=== PATIENT | male | born 1965 | race Asian ===

== ENCOUNTER 2022-05-19 10:04 | Outpatient (CLI) | payer BC, SELFPAY | END 2022-05-19 10:05 | disposition home or self-care (01) | LOC: LAB 10:06 | PROVIDERS: PCP Family Medicine; Visit Provider Orthopaedic Surgery Sports Medicine | DX: Z01.818 Encounter for other preprocedural examination (principal) | CPT/HCPCS: 36415; 86850; 86900; 86901 ==

== ENCOUNTER 2022-05-21 10:47 | Day surgery (SDC) | payer BC, SELFPAY ==
[2022-05-20 17:30] VITALS: BP 85/59; PULSE 79; RESP 16; TEMP 36.1; O2SAT 94
[2022-05-21] VITALS (19 sets, daily range): BP systolic 88–139; BP diastolic 40–91; PULSE 68–85; RESP 14–18; TEMP 36.1–36.7; O2SAT 92–98; BMI 39.6
[2022-05-21] MEDS: fentaNYL 100 MCG/2 ML inj IVP (10:51)
[2022-05-21] MEDS: LACTATED RINGERS 1000 ML 1,000 ML 100 ML IV (11:00)
[2022-05-21] MEDS: OXYCODONE (CR) 10 MG TAB.ER.12H PO (11:00)
[2022-05-21] MEDS: CELECOXIB 200 MG CAPSULE PO ×2 (11:00→21:12)
[2022-05-21] MEDS: ACETAMINOPHEN 500 MG TABLET 1000 MG PO ×2 (11:00→18:51)
[2022-05-21] MEDS: MIDAZOLAM HCL 1 MG/ML inj IVP (12:04)
--- NOTE | 2022-05-21 12:16 | W.PM.NB ---
Nerve Block Nerve Block Time Seen by Provider: 12:09 Date Seen: 05/21/22 Type of block requested by surgeon for post-operative analgesia: CASSANDRA/LFCN Side: left Time out performed: Yes Verification of patient name: Yes Verification of date of : Yes Site marking: site marked Name of person performing procedure: linda Assistants, if any: Wili Continuous monitoring Was continuous monitoring of O2 sat, B/P, nuclear monitoring technician, recorded every 15 minutes?: Yes Procedure Checklist: sterile prep and needles Ultrasound guided. Images saved: Yes Medications given in 5ml increments after negative aspiration: Ropivicaine %: 0.5 mL: 30 Needle gauge: 22 Decadron (mg): 10 Precedex (mcg): 20 Patient tolerated procedure well: Yes
--- NOTE | 2022-05-21 12:21 | SUR.PREOP ---
TIME?OUT:?1200 PT/RN/MDA?VERIFICATION?OF?SURGICAL?SITE,?PROCEDURE,?AND?CONSENT OBTAINED?PRIOR?TO?INVASIVE?PROCEDURE.
--- NOTE | 2022-05-21 12:52 | CRLHL7_ITS ---
For Patients: As a result of the Cures Act, medical imaging exams and procedure reports are released immediately into your electronic medical record. You may view this report before your referring provider. If you have questions, please contact your health care provider. Indication: Hip replacement surgery Technique: AP hip fluoroscopic image. Fluoroscopy time 58.1 seconds. Findings/Impression: Hardware from a left total hip arthroplasty is in satisfactory position. Dictated by Napoleon Vera MD @ 05/21/2022 3:26:47 PM (Electronically Signed)
--- NOTE | 2022-05-21 15:20 | PM.ORPRC ---
Procedure Note Date of procedure: 05/21/22 Procedure: PREOPERATIVE DIAGNOSIS: 1. Left hip osteoarthritis, severe, primary POSTOPERATIVE DIAGNOSIS: 1. Left hip osteoarthritis, severe, primary PROCEDURE: 1. Left total hip arthroplasty-anterior approach-33% added difficulty for this case due to patient's large body mass. BMI 39.6 once the focused around this pelvis and thighs grooving strong musculature making this a difficult/taxing case. Required longer retractors and more hands to help with retraction. 2. [id number] - intraoperative fluoroscopy up to 1 hour. SURGEON: Indio Gee MD. CLIENT SERVICE EXECUTIVE: Zeeshan Escudero PA-C; Sukhjinder COLBY - Of note, a skilled cashier assistant was critical for this case to aid in patient positioning, tissue retraction, limb manipulation/positioning, dislocation/relocation, patient safety, and closure. ANESTHESIA: General endotracheal anesthetic EBL: 1,300 ml IMPLANTS: DePuy J&J uncemented total hip [place] cup size 58, hole eliminator, +4 neutral liner Actis stem, high offset, size 8 +8.5 mm ceramic 36 mm head. COMPLICATIONS: None evident INDICATIONS: The patient is a pleasant 56-year-old male who has experienced severe left hip pain and difficulty bearing weight. Workup included x-rays which revealed severe osteoarthrosis in the hip. Given the deformity, the dysfunction, and the pain, as well as the failure of nonoperative management, recommendation was made for surgery. FINDINGS: Full-thickness chondral loss throughout the femoral head broadly. Also substantial osteophytes around the femoral head/neck junction and perimeter of the acetabulum. Large effusion upon entering the joint. DESCRIPTION OF PROCEDURE: Following a thorough discussion of risks, benefits, and alternatives consent was obtained and the left hip was marked. The patient was brought to the operating room and placed supine on the operating table. Induction of anesthesia was undertaken. 3 g IV Ancef and 1 g tranexamic acid was administered within 1 hr of incision preoperatively. Proper time-out was performed identifying proper patient, site, procedure. The operative extremity was prepped and draped in the appropriate sterile fashion using ChloraPrep after the patient was positioned on the [place] table with head in neutral alignment and all bony prominences well padded. C-arm fluoroscopic imaging was utilized to confirm proper pelvis rotation and position, and to get true AP films of both the contralateral left, and the affected left hip. This is for comparison. A longitudinal incision was made starting approximately 1 cm distal to the ASIS, and 3-4 cm lateral. The incision was extended distally aiming toward the lateral border the patella. Sharp incision through skin and bovie cautery through the subcutaneous tissue allowed identification of the TFL fascia. This was sharply divided, and the fascia bluntly released from the muscle fibers as we dissected medial. Upon coming to the medial border, we were able to retract the TFL laterally, and penetrated the deeper fascia and identify the crossing circumflex vessels. These were ligated/cauterized. The rectus was elevated from the capsule, and retractors placed laterally and medially along the femoral neck to help with visualization of the capsule. We then performed an inverted T capsulotomy. The capsule was tagged for later repair. Retractors were placed inside the capsule. The femoral neck was visualized after releasing medially down to the lesser trochanter, along the saddle laterally, and up onto the acetabulum. The femoral neck cut was made in line with our preoperative templating. The head was removed in a single piece, and sized. We turned our attention to acetabular preparation. Initially, the labrum was resected from around the perimeter, the pulvinar was excised, allowing us to visualize the false wall. We started the reaming with a 43 mm reamer. This was medialized down to the true wall. We then enlarged our reamers sequentially up to one size less than the selected cup size. We trialed at the same size and found it to have an excellent fit. The selected cup was then opened, inserted, and impacted in line with the goal of 40-45? of abduction, and 20-25? of anteversion. This was confirmed on C-arm fluoroscopic imaging to be in the appropriate/goal position. Once the cup was placed we placed a hole eliminator and a liner consistent with preop planning. Attention was turned to the femoral preparation. The limb was extended, externally rotated, and adducted. The posteromedial capsule was released, as retractors were placed allowing challenging access to the proximal femur. It was here where extra long retractors were necessary and more hands were required to help with retraction to help achieve a safe femoral preparation. Initially a cook box filler was followed by canal finder followed by various broaches. We broached sequentially up to size noted above, found it to have excellent rotational control, and trialing various heads and necks, revealed that appropriate neck offset, and the above noted head size provided the greatest stability, and anglican of length, and offset. C-arm fluoroscopic imaging confirmed position of the stem, as well as leg lengths, which were compared with the pre procedure all fluoroscopic images. Trial implants were removed, the real femoral stem inserted, as was the ceramic head. After reducing, the leg was placed through range of motion and stability was confirmed anterior, posterior, and lateral. A 3 min Betadine soak was then performed, and thorough irrigation with normal saline followed. Closure of the capsule was performed with #1 PDS. Bleeding was confirmed to be controlled at this stage, and the TFL fascia was closed with #0 strata fix. Subcutaneous, and subcuticular closure was performed with 2-0 Vicryl and 4-0 Monocryl, respectively. Dressings were applied, and the patient was awoken from anesthesia and transferred the PACU in stable condition. A skilled cashier assistant was critical for this case to aid in patient positioning, tissue retraction, proximal femur exposure, limb manipulation/positioning, dislocation/relocation, patient safety, and closure. Again, 33% added difficulty for this case due to patient's large body mass. BMI 39.6 once the focused around this pelvis and thighs grooving strong musculature making this a difficult/taxing case. Required longer retractors and more hands to help with retraction. PLAN: 1. Weight bear as tolerated operative extremity. 2. 23 hr perioperative antibiotics. 3. Ice. 4. PT/OT consults for ambulation assistance/mobility education. 5. Social work consult for discharge planning. 6. DVT prophylaxis with at SCDs, Paul Alvarez, and Xarelto x5 days followed by aspirin for a total of 1 month..
--- NOTE | 2022-05-21 16:00 | CRLHL7_ITS ---
For Patients: As a result of the Cures Act, medical imaging exams and procedure reports are released immediately into your electronic medical record. You may view this report before your referring provider. If you have questions, please contact your health care provider. Indication: POST OP HIP XRAY VIVIANE Technique: AP hip centered pelvis and lateral view left hip Findings/Impression: Hardware from a left total hip arthroplasty is in satisfactory position. Bone alignment is normal. No sign of acute fracture. Postop changes are within normal limits. Chronic deformity of the anterior left femoral cortex noted without pathologic fracture. Dictated by Napoleon Vera MD @ 05/22/2022 10:10:01 AM (Electronically Signed)
--- NOTE | 2022-05-21 16:59 | W.ANESCHARGE ---
Anesthesia Charges Start Date/Time Anesthesia Start Date: 05/21/22 Anesthesia Start Time: 12:37 Stop Date/Time Anesthesia Stop Date: 05/21/22 Anesthesia Stop Time: 16:42 Summary Emergency: No
--- NOTE | 2022-05-21 17:04 | P.NB_ITS ---
Nerve Block Nerve Block Time Seen by Provider: 12:20 Date Seen: 05/21/22 Type of block requested by surgeon for post-operative analgesia: CASSANDRA/LFCN Side: left Time out performed: Yes Verification of patient name: Yes Verification of date of : Yes Site marking: site marked Name of person performing procedure: Sasha Assistants, if any: Wili Continuous monitoring Was continuous monitoring of O2 sat, B/P, monitor and storage bin tender, recorded every 15 minutes?: Yes Procedure Checklist: sterile prep, needles and gloves Ultrasound guided. Images saved: Yes Medications given in 5ml increments after negative aspiration: Ropivicaine %: 0.5 mL: 30 Needle gauge: 22 Decadron (mg): 10 Precedex (mcg): 20 Patient tolerated procedure well: Yes
--- NOTE | 2022-05-21 18:06 | P.IMCN_ITS ---
Date of Consult Patient: [facility] Patient Consult date: 05/21/22 Requesting Physician: Orthopedics Primary Care Provider: Joes Baldwin MD Consult Narrative Reason for consult: Postop support of hypertension, atrial fib, obstructive sleep apnea Narrative: Adonis Chris is a 56 year old man with severe, symptomatic primary left coxarthrosis, who presents for an elective left total hip arthroplasty today per Dr. Indio Gee, orthopedic surgery. Preoperatively he took his usual dose of morning amlodipine 5 mg, morning flecainide dose of 100 mg, morning dose of losartan 100 mg, and morning dose of metoprolol succinate extended release 50 mg. Surgery took longer than normal for various reasons, not the least of which was his obese body habitus requiring additional measures for access and intervention. During the course of the procedure his blood pressures tended to be somewhat low. Patient received a total of 3 doses of phenylephrine 100 mcg, and 3300 mL of lactated Ringer's to maintain his blood pressures. Systolic blood pressures dropped into the 80s. In the postanesthesia care unit they recorded as blood pressure has been 112/63, heart rate 70. Room air oxygen saturations were 97% with respirations of 16. Visit with the patient at this time he indicates that he feels well save some gnawing discomfort in his hip. He is satisfied with the level of pain control at this time. Last dose of hydromorphone was 0.5 mg at 3:50 p.m.. Denies chest heaviness, pressure, tightness, or pain. Denies lightheadedness or dizziness. Denies palpitations. Denies shortness of breath. Denies nausea or vomiting. Review of Systems Status of ROS: Reports: 10 or more systems reviewed and unremarkable except as noted in History and below Narrative: I reviewed the preoperative assessment per Dr. Harden. I obtained the report of the echocardiogram that he had done on 05/18/2022 at the [facility]. Ejection fraction currently 50% compared to 35% on 06/22/2016. Otherwise no other changes per se. No recent febrile illness, no COVID. Denies fevers, rigors, diaphoresis. Denies any change in weight. No recent trauma or injury. No recent travel. No recent blood loss. Utilizes his CPAP every night. Works hard. No limiting symptoms except for his left hip pain. No concerns with gastrointestinal or genitourinary tract function. No focal motor neurologic deficits. No other joint swelling or pain. [facility] Medical History Atrial fibrillation History of cardioversion History of herpes zoster Sleep apnea Surgical History History of rotator cuff surgery (~03/03/13) History of third molar tooth extraction Status post catheter ablation of atrial fibrillation Family History Father Diabetes Heart disease High blood pressure Mother Cancer Social History Narrative: does not drink alcohol does not use illicit drugs has 5 children non-smoker Smoking Status: Never smoker How often do you have a drink containing alcohol: never AUDIT-C Alcohol total score: 0 Non-prescribed substance use: denies use Caffeine: Yes (coffee, 1 cup/day occ.) Meds Home Medications and Allergies Home Medications Medication Instructions Recorded Confirmed Type amlodipine 5 mg tablet 5 mg PO DAILY tab 05/17/22 05/21/22 History flecainide 100 mg tablet 100 mg PO BID tab 05/17/22 05/21/22 History losartan 100 mg tablet 100 mg PO DAILY tab 05/17/22 05/21/22 History metoprolol succinate 50 mg 50 mg PO BID 05/17/22 05/21/22 History tablet,extended release 24 hr multivitamin with iron 1 tab PO QDAY 05/17/22 05/21/22 History multivitamin,tx-minerals 1 tab PO QDAY 05/17/22 05/21/22 History Home Medication Comments: Took his morning dose of amlodipine, flecainide, losartan, and metoprolol prior to coming into the hospital for surgery today. Allergies Allergy/AdvReac Type Severity Reaction Status Date / Time lisinopril AdvReac Mild Cough Verified 05/21/22 10:54 Exam Narrative: Exam Narrative: Awake. Alert. Oriented to self, place, time, situation. Pleasant. Conversant. Articulate. Cooperative. Friendly. Mood and affect are congruent. Full neck. Midline trachea. Tight oral aperture. Dentition in good repair. Lungs clear to auscultation. No wheezing, rhonchi, or rales. Chest wall excursions are full. Heart tones are distant but with regular rhythm, normal S1-S2, no murmur, gallop, or rub. PMI is not laterally displaced. Abdomen obese, active bowel sounds, soft, nontender. Extremities without edema. No focal motor neurologic deficits. Const: Vital Signs, click to edit/add: Vital Signs - 24 hr 05/21/22 11:24 05/21/22 12:05 05/21/22 12:10 Temperature 98.0 F Pulse Rate 80 77 76 Respiratory Rate 16 16 16 Blood Pressure 139/91 H 132/84 134/84 Pulse Oximetry 96 94 94 05/21/22 12:15 05/21/22 12:20 05/21/22 16:42 Temperature 97.8 F Pulse Rate 75 78 70 Respiratory Rate 16 16 16 Blood Pressure 136/40 L 132/82 112/63 Pulse Oximetry 94 95 98 05/21/22 16:47 05/21/22 16:52 05/21/22 16:57 Temperature Pulse Rate 68 72 74 Respiratory Rate 16 16 16 Blood Pressure 104/80 88/55 L 118/71 Pulse Oximetry 97 98 97 05/21/22 17:02 05/21/22 17:07 05/21/22 17:13 Temperature 97.5 F L Pulse Rate 72 75 75 Respiratory Rate 16 16 16 Blood Pressure 118/81 114/74 109/70 Pulse Oximetry 98 95 95 Assessment and Plan Assessment and plan (1) Primary osteoarthritis of left hip: Status: Acute (2) S/P total left hip arthroplasty: Status: Acute (3) Postoperative hypotension: Status: Acute Assessment and Plan: Multifactorial, including from his antihypertensive medications which he took this morning plus general anesthesia plus surgery. Hold his antihypertensive medicines at this juncture, including amlodipine, losartan, metoprolol succinate. Intermittent boluses of crystalloid IV fluids. (4) Obesity: Status: Acute Assessment and Plan: Uses his CPAP nightly at home. Consider outpatient discussion about additional measures to address obesity. (5) Atrial fibrillation: Problem comment: Takes flecainide. In normal sinus rhythm. Status: Acute Assessment and Plan: Hold flecainide for now. Hold metoprolol succinate for now. (6) Cardiomyopathy: Problem comment: 06/22/2016- EF 35%; 05/18/2022- EF 50%, with heart rate well controlled. [facility]. Status: Acute (7) Hypertension: Status: Acute Assessment and Plan: Antihypertension medications on hold due to postoperative hypotension. (8) Sleep apnea with use of continuous positive airway pressure (CPAP): Status: Acute Assessment and Plan: Uses his CPAP nightly at home. Plan 1. Will follow with Orthopedic surgery while patient is in hospital. 2. Agree with postoperative venous thromboembolism prophylaxis. 3. Agree with perioperative antibiotic prophylaxis. 4. Reviewed my impressions and plans with the patient and his , Tabatha. They are agreeable to above stated plans and recommendations.
[2022-05-21] MEDS: 0.9 % SODIUM CHLORIDE 500 ML IV (18:21)
[2022-05-21] MEDS: LACTATED RINGERS 1000 ML 1,000 ML 75 ML IV ×2 (18:43→18:50)
[2022-05-21] MEDS: CEFAZOLIN 3 GM in 0.9 % SODIUM CHLORIDE Mini-bag 100 ML IVPB (18:58)
[2022-05-21 19:24] LABS: Basophils Percent Auto 0.1 % (0.0-3.0); Hematocrit 37.8 % (37.0-53.0); Hemoglobin* 12.9 gm/dL (13.5-17.5); Immature Granulocytes Abs Auto 0.02 K/uL (0.00-0.30); Mean Corpuscular HGB Conc 34 gm/dL (32-36); Mean Corpuscular Hemoglobin 30 pg (26-34); Mean Corpuscular Volume 87 fL (80-100); Monocytes Percent Auto 2.6 % (0.0-11.0); Neutrophils Percent Auto 90.2 % (42.0-72.0); Platelet Count* 248 K/uL (140-440); RDW Coefficient of Variation % 12.2 % (11.5-15.5); Red Blood Count 4.33 m/uL (4.30-5.90)
[2022-05-21 19:26] LABS: Slide Review Reflex No
--- NOTE | 2022-05-21 19:48 | PC.NURSE ---
End of shift-- Very pleasant and cooperative, alert and oriented but drowsy patient arrived from PACU at approximately 1725. Pt has been hypotensive with B/P from 85-102/50s-60s and MD was notified. Pt lied flat and given 500ml NS bolus per MD order with temporary improvement. Other VS WNL. Pt is afebrile. SPO2 maintained >90% while awake, though occasionally noted to drop as low as 88% while pt is sleeping. Patient rated pain 2-3 out of 10 in left hip and stated that it was mild and tolerable at this time. Dressing to left hip is C/D/I and CMS WNL. Ice pack in place. LS CTA. BS+ x4 and pt denied nausea. No flatus as of yet, but pt is tolerating food and fluids without difficulty. is at bedside and appears loving and supportive. Pt has not been out of bed or urinated yet post-operatively. Report to Dean, Jacqueline.
[2022-05-21] MEDS: SENNOSIDES 1 TAB TABLET 2 TAB PO (21:11)
[2022-05-21] MEDS: 0.9 % SODIUM CHLORIDE 1000 ml 1,000 ML 500 ML IV (23:42)
[2022-05-22 03:00] VITALS: BP 109/65; PULSE 81; RESP 18; TEMP 36.3; O2SAT 96
[2022-05-22] MEDS: CEFAZOLIN 3 GM in 0.9 % SODIUM CHLORIDE Mini-bag 100 ML IVPB ×2 (04:44→10:31)
[2022-05-22] MEDS: LACTATED RINGERS 1000 ML 1,000 ML 75 ML IV (04:45)
--- NOTE | 2022-05-22 05:48 | PC.NURSE ---
Post surgical day 1. Patient is alert and orientedx4. Low BP's overnight but stable after 1L of fluids bolus. On room air and satting fine. CPAP on overnight. rating pain at 2/10.IV fluids and abx administered as ordered. Voided in the bathroom once during the shift. Ambulated to the bathroom x1. No further concerns noted
[2022-05-22 06:31] LABS: Basophils Percent Auto 0.1 % (0.0-3.0); Hematocrit 30.8 % (37.0-53.0); Hemoglobin* 10.6 gm/dL (13.5-17.5); Immature Granulocytes Abs Auto 0.04 K/uL (0.00-0.30); Lymphocytes Percent Auto 7.8 % (20-44); Mean Corpuscular HGB Conc 34 gm/dL (32-36); Mean Corpuscular Hemoglobin 30 pg (26-34); Mean Corpuscular Volume 87 fL (80-100); Neutrophils Percent Auto 83.8 % (42.0-72.0); Platelet Count* 228 K/uL (140-440); RDW Coefficient of Variation % 12.4 % (11.5-15.5); Red Blood Count 3.54 m/uL (4.30-5.90); White Blood Count* 13.79 K/uL (4.50-11.00)
[2022-05-22] MEDS: ACETAMINOPHEN 500 MG TABLET 1000 MG PO (06:31)
[2022-05-22 06:40] LABS: Chloride* 107 mmol/L (96-114); Sodium* 135 mmol/L (135-149)
[2022-05-22 06:41] LABS: Potassium* 4.4 mmol/L (3.6-5.1)
[2022-05-22 06:42] LABS: Slide Review Reflex No
[2022-05-22 06:43] LABS: Creatinine* 1.4 mg/dL (0.5-1.5); Estimated Glomerular Filt Rate 59 ml/min
[2022-05-22 06:44] LABS: Blood Urea Nitrogen* 29 mg/dL (7-30); Calcium* 7.5 mg/dL (8.4-10.6); Carbon Dioxide* 23 mmol/L (20-32); Glucose* 132 mg/dL (60-115)
[2022-05-22 07:00] VITALS: BP 120/62; PULSE 81; RESP 18; TEMP 36.9; O2SAT 96
[2022-05-22] MEDS: RIVAROXABAN 10 MG TABLET PO (09:11)
[2022-05-22] MEDS: CELECOXIB 200 MG CAPSULE PO (09:11)
[2022-05-22] MEDS: SENNOSIDES 1 TAB TABLET 2 TAB PO (09:11)
--- NOTE | 2022-05-22 11:37 | PC.NURSE ---
pt d/c to home via w/c accompanied by and son. d/c packet reviewed and signed, all questions answered. pts pain 01/11, no
--- NOTE | 2022-05-22 11:38 | NUTR.NU ---
pt d/c to home via w/c accompanied by and son. discharge packet reviewed and signed. tolerating reg diet. BP WNL. tolerating ambulation with walker. pain 1-01/11. IV removed, cath intact.
--- NOTE | 2022-05-22 12:21 | P.ORPN_ITS ---
Subjective Subjective Date Seen: 05/22/22 Principal diagnosis: Status postop day 1, left total hip arthroplasty - anterior approach Interval history: Patient reports doing well. No acute events over night. Some lower blood pressures postoperative as well as intraoperative. Pain managed with scheduled /PRN medications and ice. DVT prophylaxis rivaroxaban, bilateral knee high Paul stockings, and SCDs. fevers, chills, aches, N/V, CP, SOB/RHOADES, tachycardia, or lightheadedness Ortho Exam Narrative Exam Narrative: -Patient appears comfortable in recliner eating breakfast; no apparent acute distress -Alert and oriented times 3 -Operative hip swollen; firm tissues which is comparable to contralateral side; no obvious erythema. No ecchymosis. Warmth appropriate -Surgical dressing clean, dry, intact; no obvious drainage, no erythematous streaking peripheral to the bandage -Bilateral calves soft and supple; no significant swelling, edema, tenderness, erythema, discoloration, warmth, or palpable cords -2+ DP/PT pulses, intact dermatomes and myotomes distally (5/5 strength). No numbness about the lateral femoral cutaneous nerve distribution. Const Vital Signs, click to edit/add: Vital Signs - 24 hr 05/21/22 16:42 05/21/22 16:47 05/21/22 16:52 Temperature 97.8 F Pulse Rate 70 68 72 Pulse Rate [Left Radial] Respiratory Rate 16 16 16 Blood Pressure 112/63 104/80 88/55 L Blood Pressure [Right Arm] Pulse Oximetry 98 97 98 05/21/22 16:57 05/21/22 17:02 05/21/22 17:07 Temperature 97.5 F L Pulse Rate 74 72 75 Pulse Rate [Left Radial] Respiratory Rate 16 16 16 Blood Pressure 118/71 118/81 114/74 Blood Pressure [Right Arm] Pulse Oximetry 97 98 95 05/21/22 17:13 05/21/22 17:25 05/21/22 17:35 Temperature 97.0 F L 97.5 F L Pulse Rate 75 77 Pulse Rate [Left Radial] 77 77 Respiratory Rate 16 16 16 Blood Pressure 109/70 Blood Pressure [Right Arm] 91/56 L 98/49 L Pulse Oximetry 95 92 95 05/21/22 17:45 05/21/22 18:00 05/21/22 18:15 Temperature 97.5 F L 97.5 F L 97.5 F L Pulse Rate Pulse Rate [Left Radial] 78 78 83 Respiratory Rate 16 14 14 Blood Pressure Blood Pressure [Right Arm] 88/55 L 96/63 102/64 Pulse Oximetry 93 94 92 05/21/22 18:45 05/21/22 23:00 05/22/22 03:00 Temperature 97.5 F L 97.8 F 97.4 F L Pulse Rate Pulse Rate [Left Radial] 85 85 81 Respiratory Rate 14 18 18 Blood Pressure Blood Pressure [Right Arm] 89/62 L 101/62 109/65 Pulse Oximetry 96 97 96 05/22/22 07:00 Temperature 98.4 F Pulse Rate Pulse Rate [Left Radial] 81 Respiratory Rate 18 Blood Pressure Blood Pressure [Right Arm] 120/62 Pulse Oximetry 96 Documenting provider has reviewed patient's vital signs: yes Assessment and Plan Assessment and plan (1) Primary osteoarthritis of left hip: Status: Acute (2) S/P total left hip arthroplasty: Problem details: Pod 1 left total hip arthroplasty - anterior approach Status: Acute (3) Postoperative hypotension: Status: Acute (4) Obesity: Status: Acute (5) Atrial fibrillation: Problem details: Takes flecainide. In normal sinus rhythm. Status: Acute (6) Cardiomyopathy: Problem details: 06/22/2016- EF 35%; 05/18/2022- EF 50%, with heart rate well controlled. Following at [facility] cardiology. Status: Acute (7) Hypertension: Status: Acute (8) Sleep apnea with use of continuous positive airway pressure (CPAP): Status: Acute (9) Acute postoperative anemia due to expected blood loss: Problem details: Acute blood loss anemia, surgically related, hemoglobin 10.9-asymptomatic Status: Acute Plan - Complete 23 hour perioperative antibiotics. - PT/OT consult for education and assistance. - Social work consult for discharge planning - Prescribed analgesics as needed - DVT prophylaxis: Rivaroxaban, then transition to aspirin b.i.d.; bilateral knee high Paul Hose stockings and SCDs - Anticipation is for discharge to home with spouse if the patient remains medically stable, pain is controlled, and they are safe with mobilization. - Patient will have outpatient hemoglobin lab draw in [facility] later this week trend this blood loss anemia. I am not concerned with his ability to replenish RBCs and thus hemoglobin
--- NOTE | 2022-05-22 12:26 | P.DS_ITS ---
DS: Providers Provider Date Seen: 05/22/22 Primary care physician: Jose Baldwin MD Consults: 05/21/22 17:52 Consult to Occupational Therapy [CONS] Routine Comment: Reason(s) for OT Consult:: ADLs Prior to Discharge Any Restrictions?:: No Restrictions Comment: Consult to Occupational Therapy [CONS] Routine Comment: Reason(s) for OT Consult:: Evaluate and Treat Any Restrictions?:: No Restrictions Consult to Physical Therapy [CONS] Routine Comment: Ambulate in the flowers today Reason(s) for PT Consult:: Evaluate and Treat Any Restrictions?:: No Restrictions Comment: Nursing Activity Consult to Physical Therapy [CONS] Routine Comment: Ambulate in the flowers today Reason(s) for PT Consult:: THR TX Protocol POD#0 Any Restrictions?:: Wt Bearing as Tolerated Comment: Nursing Activity: See nursing activity order Consult to Physician [CONS] Routine Comment: Consulting Provider: Hospitalists Has provider been notified: No Consult to Sr Risk Management Consultant [CONS] Routine Comment: Reason for Consult:: Discharge Planning Needs Consult to Sr Risk Management Consultant [CONS] Routine Comment: Reason for Consult:: Discharge Planning Needs Attending Physician on discharge: Indio Gee MD DS: Diagnosis Discharge Diagnosis (1) Primary osteoarthritis of left hip: Status: Acute (2) S/P total left hip arthroplasty: Status: Acute Problem details: Pod 1 left total hip arthroplasty - anterior approach (3) Postoperative hypotension: Status: Acute (4) Obesity: Status: Acute (5) Atrial fibrillation: Status: Acute Problem details: Takes flecainide. In normal sinus rhythm. (6) Cardiomyopathy: Status: Acute Problem details: 06/22/2016- EF 35%; 05/18/2022- EF 50%, with heart rate well controlled. Following at [facility] cardiology. (7) Hypertension: Status: Acute (8) Sleep apnea with use of continuous positive airway pressure (CPAP): Status: Acute (9) Acute postoperative anemia due to expected blood loss: Status: Acute Problem details: Acute blood loss anemia, surgically related, hemoglobin 10.9-asymptomatic DS: Summary Hospital Course Hospital Course: The patient has a history of left hip osteoarthritis, primary, severe. After appropriate preoperative evaluation, the patient underwent left total hip arthroplasty. Postoperatively given anticoagulation for deep vein thrombosis prophylaxis. They progressed to PT/OT and were felt ready and prepared for discharged to home with appropriate pain medication and anticoagulation medications. Status at Discharge Functional status at discharge: uses cane/walker Overall status at discharge: patient is progressing back to baseline Time Spent with Patient Time attestation: Total time spent providing and/or coordinating discharge services: Time spent: Greater than 30 minutes Specific discharge activities: Will need to obtain hemoglobin lab draw [facility] later this week to trend his hemoglobin following surgically induced blood loss anemia. Exam Const: Vital Signs, click to edit/add: Vital Signs - 24 hr 05/21/22 16:42 05/21/22 16:47 05/21/22 16:52 Temperature 97.8 F Pulse Rate 70 68 72 Pulse Rate [Left R adial] Respiratory Rate 16 16 16 Blood Pressure 112/63 104/80 88/55 L Blood Pressure [Ri ght Arm] Pulse Oximetry 98 97 98 05/21/22 16:57 05/21/22 17:02 05/21/22 17:07 Temperature 97.5 F L Pulse Rate 74 72 75 Pulse Rate [Left R adial] Respiratory Rate 16 16 16 Blood Pressure 118/71 118/81 114/74 Blood Pressure [Ri ght Arm] Pulse Oximetry 97 98 95 05/21/22 17:13 05/21/22 17:25 05/21/22 17:35 Temperature 97.0 F L 97.5 F L Pulse Rate 75 77 Pulse Rate [Left R adial] 77 77 Respiratory Rate 16 16 16 Blood Pressure 109/70 Blood Pressure [Ri ght Arm] 91/56 L 98/49 L Pulse Oximetry 95 92 95 05/21/22 17:45 05/21/22 18:00 05/21/22 18:15 Temperature 97.5 F L 97.5 F L 97.5 F L Pulse Rate Pulse Rate [Left R adial] 78 78 83 Respiratory Rate 16 14 14 Blood Pressure Blood Pressure [Ri ght Arm] 88/55 L 96/63 102/64 Pulse Oximetry 93 94 92 05/21/22 18:45 05/21/22 23:00 05/22/22 03:00 Temperature 97.5 F L 97.8 F 97.4 F L Pulse Rate Pulse Rate [Left R adial] 85 85 81 Respiratory Rate 14 18 18 Blood Pressure Blood Pressure [Ri ght Arm] 89/62 L 101/62 109/65 Pulse Oximetry 96 97 96 05/22/22 07:00 Temperature 98.4 F Pulse Rate Pulse Rate [Left R adial] 81 Respiratory Rate 18 Blood Pressure Blood Pressure [Ri ght Arm] 120/62 Pulse Oximetry 96 DS: Data Data Completed and Pending Labs on day of discharge: Labs from last 24 hours 05/22/22 05/22/22 05/21/22 06:10 06:10 19:20 WBC 13.79 H 14.10 H RBC 3.54 L 4.33 Hgb 10.6 L 12.9 L Hct 30.8 L 37.8 MCV 87 87 MCH 30 30 MCHC 34 34 RDW Coeff of Rosa 12.4 12.2 Plt Count 228 248 Neut % (Auto) 83.8 H 90.2 H Lymph % (Auto) 7.8 L 7.0 L [place] % (Auto) 8.0 2.6 Eos % (Auto) 0.0 0.0 Baso % (Auto) 0.1 0.1 Neut # (Auto) 11.60 H 12.70 H Lymph # (Auto) 1.10 1.00 [place] # (Auto) 1.10 H 0.40 Eos # (Auto) 0.00 0.00 Baso # (Auto) 0.00 0.00 Abs Immat Gran (auto) 0.04 0.02 Sodium 135 Potassium 4.4 Chloride 107 Carbon Dioxide 23 BUN 29 Creatinine 1.4 Estimated Creat Clear 63.90 Estimated GFR 59 Glucose 132 H Calcium 7.5 L Discharge Plan Discharge Disposition: Home, Self-Care Discharging Surgeon: Zeeshan Escudero Follow-Up Appointment: SaturdayMay 29 at 9:20 AM Prescriptions: New oxycodone 5 mg tablet 2.5 - 5 mg PO Q4-6H MDD 6 PRN (Reason: pain) Qty: 42 0RF Rx Instructions: Take as needed for postop pain: 2.5mg mild pain, 5mg moderate-severe pain. sennosides-docusate sodium [Senna-S] 8.6-50 mg tablet 1 - 4 tab-cap PO BID Qty: 60 0RF Rx Instructions: Hold medication if experiencing loose stools. rivaroxaban 10 mg tablet 10 mg PO DAILY Qty: 4 0RF Rx Instructions: Medication for deep vein clot prevention post surgery. Complete this medication before starting Aspirin. aspirin 81 mg tablet,delayed release (DR/EC) 81 mg PO BID Qty: 50 0RF Rx Instructions: For deep vein clot prevention post surgery. Start this medication after completing Rivaroxaban. Take twice daily. acetaminophen 500 mg capsule 500 - 1,000 mg PO Q6H MDD 4000mg PRNQty: 100 0RF No Action multivitamin,tx-minerals Tablet 1 tab PO QDAY 0RF multivitamin with iron Tablet 1 tab PO QDAY 0RF amlodipine 5 mg tablet 5 mg PO DAILY 0RF flecainide 100 mg tablet 100 mg PO BID 0RF metoprolol succinate 50 mg tablet extended release 24 hr 50 mg PO BID 0RF losartan 100 mg tablet 100 mg PO DAILY 0RF Activity Level: Activity as Tolerated, Weight Bearing as Tolerated, Use Cane and Use Walker Activity Detail: Wound: ?Do not remove original dressing; we will remove this at first postop visit in 1 week. Only remove dressing if integrity is in question. ?No immersing wound in water; showering okay; light scrub with your hand and body soap, rinse, dab dry ?Sutures are under the skin, will dissolve; allow surgical glue to come off naturally; do not scrub the wound or apply ointments/lotions ?Call our office with any redness that streaks, excessive drainage from the wound, or wound gapping. Ice/Elevate: ?Ice as needed for swelling and discomfort (cryocuff or ice pack); elevate frequently above the heart MOSHE socks: ?Wear for 1 month, remove for 1 hour 3 times per day ?These are frustrating to take on/off, but are important for blood clot prevention for 1 month after surgery Blood Clot Prevention (DVT): ?Medication: Rivaroxaban followed by aspirin for 25 days Driving: ?Do not drive while taking narcotic pain medication ?Anticipate 4-6 weeks no driving if operative leg is driving leg Dental: ?No elective dental work for 6 months post-op. If there is an urgent/emergent dental need, contact our office for an antibiotic prescription. Smoking/Alcohol: ?Do not smoke; do no drink alcohol especially when taking postoperative oral narcotic medication Seek Care from you Primary Care Provider if you experience the following issues in the postoperative phase and beyond: ?Bacterial infections such as: pneumonia, bacterial skin infection (cellulitis), UTI, high fever, chills unrelated to the operative body part - call your primary care physician urgently for treatment in hopes to protect your health and the metal implant. Referrals: ?PT, OT per patient preference - evaluate/treat total left total hip arthroplasty protocol (the training, ROM, ADLs, knee-high Moshe socks) Follow up: ?Ortho surgeon follow-up in 6 weeks; repeat radiographs AP pelvis, cross-table lateral left hip ?PA-C visit in 1 week *If there are any acute concerns regarding your surgery, please call our orthopedic clinic ([phone]) Discharge Diet: Regular Patient Instructions: Acetaminophen (By mouth), Aspirin (By mouth), Oxycodone, Rapid Release (By mouth), Rivaroxaban (By mouth), Senna (By mouth), Surgical Site Infections (DC), Anterior Hip Replacement (DC) Forms: Work/Release Restrictions Follow-up: Indio Gee MD [Staff Physician] - 05/24/22 1:00 pm (Hemoglobin lab draw at the [facility]. Lab result to Zeeshan PATE) Jose Baldwin MD [Primary Care Provider] - Discharge Orders: Discharge Order (Routine); Ordered 05/22/22 Ordered By: Zeeshan Escudero
== END 2022-05-22 11:25 | disposition home or self-care (01) ==
LOC: OR 10:48 → MEDSURG 16:47
PROVIDERS: PCP Family Medicine; Visit Provider Orthopaedic Surgery Sports Medicine
PROC: (CPT 27130; principal; 2022-05-21 13:15)
DX: M16.12 Unilateral primary osteoarthritis, left hip (principal); Z68.39 Body mass index [BMI] 39.0-39.9, adult; I95.81 Postprocedural hypotension; D62 Acute posthemorrhagic anemia; I48.91 Unspecified atrial fibrillation; G47.33 Obstructive sleep apnea (adult) (pediatric); E66.9 Obesity, unspecified; I11.9 Hypertensive heart disease without heart failure; I43 Cardiomyopathy in diseases classified elsewhere
CPT/HCPCS: 27130; 01214; 36415; 64450; 73501; 76942; 80048; 85025; 97110; 97116; 97161; 97165; A9270; C1776; J0330; J0690; J1100; J1170; J2250; J2370; J2405; J2704; J2710; J2795; J3010; J7030; J7120

== ENCOUNTER 2022-06-01 12:21 | Outpatient (REF) | payer BC, SELFPAY ==
[2022-06-01 12:44] LABS: Bilirubin Direct* 0.4 mg/dL (0.0-0.5); Bilirubin Total* 1.4 mg/dL (0.1-1.5)
== END 2022-06-01 12:22 | disposition home or self-care (01) ==
LOC: NPINS 12:21
PROVIDERS: Internal Medicine Interventional Cardiology; PCP Family Medicine
DX: R17 Unspecified jaundice (principal); I48.91 Unspecified atrial fibrillation; E66.9 Obesity, unspecified; I10 Essential (primary) hypertension; G47.30 Sleep apnea, unspecified; I42.9 Cardiomyopathy, unspecified
CPT/HCPCS: 82247; 82248

== ENCOUNTER 2022-07-11 08:15 | Outpatient (RCR) | payer BC, SELFPAY ==
--- NOTE | 2022-05-15 15:27 | PT.OPE ---
PT [facility] Eval PT [facility] Outpatient Eval Start: 05/15/22 12:49 Freq: Status: Active Protocol: Document 05/15/22 15:22 CJT (Rec: 05/15/22 15:27 CJT [id number]) E-Signed By Fam West PT Physical Therapy Outpatient Evaluation Insurance Information Recert Due Date 08/13/22 Insurance Name [employer] Medical Diagnosis Z96.642 - L hip replacement Treating Diagnosis Z96.642 - L hip replacement Referring Indio Swanson MD Subjective Subjective Pt presents for pre-op appointment for L VIVIANE to be performed on 05/21/[address] Roosevelt Nava. Pt lives with his in a 2-story house with 6 steps to enter. Handrail is located on both sides. Pts bedroom/bathroom is down in the basement and prefers to hang out in this area of his home. 10-12 steps down to basement with handrail on R. Walk-in shower in the bathroom with no grab bars. Pt also lives with his two sons who are 18, and 20 and will be able to assist him if needed. Pts Tabatha works from home and will also be available to assist Adonis if needed. Pt has PMH of a-fib and currently takes medication for management. Pain Comments Date of Last Physician Visit 05/03/22 Date of Next Physician Visit 05/29/22 Date of Surgery (If applicable) 05/21/22 Current Work Status Unemployed Precautions Weight Bearing Status Weight Bear as Tolerated Therapy Limitations/Systems Review Not Limited Objective Range of Motion L Hip ROM Flexion - 90 Abduction - 25 IR/ER - 0/40 Extension - 0 Strength R Hip Strength - 5/5 MMT for all L Hip Strength Flexion - 4/5 MMT Abduction - 4/5 MMT Adduction - 5/5 MMT IR - 4/5 MMT ER - 4/5 MMT Extension - 4/5 MMT R knee Extension - 5/5 MMT R Knee Flexion - 5/5 MMT L knee Extension - 5/5 MMT L knee Flexion - 4/5 MMT Other/Pertinent Objective MARLON JERONIMO positive for pain in L hip Assessment Assessment/Impression Pt is a 56 year old male who presents to pre-surgical evaluation for his L HTA to be performed on 05/21/22. Pt lives in a house with his and 2 boys with 5-6 steps to enter, handrails on both sides . Pt sleeps and likes to hang out in his basement which has a bathroom with a walk-in shower. There are no grab bars in shower and pt has a traditional toilet seat. Pts and 2 sons will be available to assist him if he needs. Expectations of post- surgical pain, soreness, swelling, bruising were discussed with pt and he gives verbal understanding. All phase 1 rehabilitative exercises were reviewed with pt and he performed 10 reps of each. Printouts were given for I completion and I asked that Adonis perform these daily until his surgery to have a good understanding of proper performance and he gives verbal consent. Skilled PT services are medically necessary to address deficits and return patient to highest level of function. Recommend physical therapy sessions 1-2/ week for 4-8 weeks. Pt agrees with this plan. Primary Functional Limitations Walking, standing, squatting Plan of Care Rehabilitation Potential Excellent Physical Therapy Goals STG - To be completed in 3 weeks: 1. Pt will report and demonstrate proper performance of HEP and surgical precautions to allow for appropriate recovery following surgery and reduce risk of dislocation. 2. Pt will demonstrate appropriate use of ADs at all times to allow for ease of ambulation and reduce risk of falls. 3. Pt will demonstrate ability to perform all transfers and negotiate stairs I so that he may move throughout his house safely by himself. LTG - To be completed in 8 weeks: 1. Pt to be I with HEP so that they may I mange progression of symptoms. 2. Pt will demonstrate 5/5 MMT for all hip motions without pain to provide greater support to pelvis and lumbar spine. 3. Pt will ambulation without AD and no gait deviations to reduce straining forces on pelvis and lumbar spine so that they may returning to walking for pleasure with their family. Treatment Plan/Direct Interventions Electrical Stimulation,Gait Training,Heat,Ice/Cold/ Vasopneumatic,Joint Mobilization,Manual Therapy, Neuromuscular Re-ed,Self-Care/ Home Management,Therapeutic Activities,Therapeutic Exercises Frequency/Duration 1-2/week for 4-8 weeks. Patient Will Be Discharged From Therapy Completion of LTG(s),Skills Plateau,Independent w/HEP, Independently Progressing Evaluation Billing Untimed Code Treatment Minutes 47 PT Eval No Charge No Complexity Low Certification Information Initial Certification Date 05/15/22 Ending Certification Date 07/17/22
== END 2022-08-23 09:57 | disposition home or self-care (01) ==
PROVIDERS: PCP Family Medicine; Visit Provider Orthopaedic Surgery Sports Medicine
DX: Z96.642 Presence of left artificial hip joint (principal); Z51.89 Encounter for other specified aftercare
CPT/HCPCS: 97110; 97116; 97140; 97161; 97164; 97530

== ENCOUNTER 2024-06-23 12:44 | Outpatient (CLI) | payer OTHER, SELFPAY ==
--- NOTE | 2024-06-23 13:00 | CRLHL7_ITS ---
For Patients: As a result of the Century Cures Act, medical imaging exams and procedure reports are released immediately into your electronic medical record. You may view this report before your referring provider. If you have questions, please contact your health care provider. Indication: Localized swelling Technique: Grayscale and color Doppler ultrasound of the right side of the neck performed beneath mandible in the area of concern. Comparison: None Findings: There is a complex cystic lesion within the deep soft tissues of the neck measuring 3.5 x 3.0 x 3.2 cm. Heterogeneous echotexture noted with areas of fluid. No internal vascularity. Impression: Complex heterogeneous mass within the deep soft tissues of the right-side of the neck measuring 3.5 cm, probably inflammatory. Recommend CT neck with contrast for further evaluation. Dictated by Napoleon Vera MD @ 06/24/2024 9:17:15 AM (Electronically Signed)
== END 2024-06-23 12:45 | disposition home or self-care (01) ==
PROVIDERS: Visit Provider Physician Assistant Medical
DX: R22.1 Localized swelling, mass and lump, neck (principal)
CPT/HCPCS: 76536

== ENCOUNTER 2024-06-25 11:01 | Outpatient (CLI) | payer OTHER, SELFPAY | END 2024-06-25 11:02 | disposition home or self-care (01) | LOC: NFLDREF 06-26 07:41 | PROVIDERS: Visit Provider Physician Assistant Medical | DX: I10 Essential (primary) hypertension (principal); I48.91 Unspecified atrial fibrillation; I42.9 Cardiomyopathy, unspecified; R22.1 Localized swelling, mass and lump, neck; E66.9 Obesity, unspecified; G47.30 Sleep apnea, unspecified; Z12.5 Encounter for screening for malignant neoplasm of prostate; Z13.6 Encounter for screening for cardiovascular disorders | CPT/HCPCS: 80053; 80061; 84439; 84443; G0103 ==

== ENCOUNTER 2024-07-01 15:25 | Outpatient (CLI) | payer OTHER, SELFPAY ==
--- NOTE | 2024-07-01 16:00 | CRLHL7_ITS ---
For Patients: As a result of the Century Cures Act, medical imaging exams and procedure reports are released immediately into your electronic medical record. You may view this report before your referring provider. If you have questions, please contact your health care provider. INDICATION: Localized swelling, mass and lump, neck TECHNIQUE: CT of the neck with 139 ml iodinated contrast agent. Coronal and sagittal reconstructions are included. COMPARISON: None FINDINGS: There is a large heterogeneously enhancing mass in the right level 2 torres station that demonstrates a central large region of hypoenhancement likely necrotic tissue. The mass measures 5 cm AP x 5.9 cm TR by 7.4 cm craniocaudal with extension and invasion of the right sternocleidomastoid muscle which is displaced anteriorly and laterally. There is also localized invasion of the right parapharyngeal space increased prominence of multiple right level 2 and level 3 nodes that are not enlarged by size criteria. There is diffuse fat stranding in the subcutaneous fat overlying the right sternocleidomastoid muscle. Occlusion of the right internal jugular vein and severe stenosis of the right external jugular vein (series 3, image 33). Diffuse widening of the retropharyngeal space without evidence of enhancement most compatible with effusion. The oral cavity, nasopharyngeal, oropharyngeal and hypopharyngeal mucosal spaces are normal. No periapical dental disease. The supraglottic, glottic and infraglottic larynx are normal. The airway including the trachea is normal and is patent. The parotid glands, submandibular and sublingual glands are normal in appearance. The thyroid gland is normal in appearance. Temporomandibular joint degenerative changes. Scattered mild cervical spondylosis. Moderate neural foramen narrowing at C5-6 on the right due to uncovertebral joint hypertrophy. No suspicious lytic or blastic osseous lesions. Visualized paranasal sinuses and mastoid air cells are unremarkable. Visualized orbital and intracranial contents are normal. Supraclavicular regions, mediastinum and soft tissues of the imaged chest wall are normal. Visualized portions of the upper lungs are clear. IMPRESSION: 1. Large heterogeneous enhancing centrally necrotic torres mass centered in the right level 2 torres station with localized invasion of the right sternocleidomastoid muscle, invasion of the right parapharyngeal fat pad. Occlusion of the right internal jugular vein and severe stenosis of the right external jugular vein. 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 2. No definite primary neoplasm identified in the oropharynx. ENT consult for direct visualization is recommended. Please note that all CT scans at this facility use dose modulation, iterative reconstruction, and/or weight-based dosing when appropriate to reduce radiation dose to as low as reasonably achievable. Dictated by Napoleon Devlin MD @ 07/02/2024 8:50:44 AM (Electronically Signed)
== END 2024-07-01 15:26 | disposition home or self-care (01) ==
LOC: CT 15:26
PROVIDERS: PCP Physician Assistant Medical; Visit Provider Physician Assistant Medical
DX: R22.1 Localized swelling, mass and lump, neck (principal)
CPT/HCPCS: 70491; Q9967

== ENCOUNTER 2024-07-08 09:39 | Outpatient (CLI) | payer OTHER, SELFPAY ==
--- NOTE | 2024-07-08 10:00 | CRLHL7_ITS ---
For Patients: As a result of the Century Cures Act, medical imaging exams and procedure reports are released immediately into your electronic medical record. You may view this report before your referring provider. If you have questions, please contact your health care provider. ULTRASOUND-GUIDED BREAST BIOPSY AND POST-BIOPSY DIGITAL MAMMOGRAM FOR BIOPSY MARKER PLACEMENT CLINICAL HISTORY: Left neck mass COMPARISON STUDIES: CT neck 07/01/2024, ultrasound neck 06/23/2024 TECHNIQUE: Real-time ultrasound with image documentation was used for targeting the left neck lesion. Fluid aspiration performed. Core biopsy specimens were obtained using an automated gun with a 18-gauge biopsy needle. CONSENT and TIME OUT: The procedure, risks, and alternatives were explained to the patient and a consent was signed. [place] Protocol was followed including pre-procedure verification that relevant information/documentation was available, reviewed and properly matched to the patient; consent accurate and complete; and equipment and supplies available. Time Out was conducted just prior to starting procedure to verify the four required elements: patient identity, correct side/site marked (if applicable), procedure, relevant images/results properly labeled and displayed (if applicable). PROCEDURE: The patient was positioned supine on the ultrasound table. The left neck was prepped with ChloraPrep. 7 cc of 1 percent lidocaine used for local anesthesia. 20 cc of pus was aspirated. The fluid was sent to the lab. Core samples were obtained. The specimens were placed in 10% formalin and sent to the pathology department. Pressure was held on the biopsy site until all bleeding subsided. LATERALITY: Left neck LESION: Solid and cystic left neck mass measuring 7 cm. SUSPICION FOR MALIGNANCY: Probable abscess. NUMBER OF SAMPLES: 6 core samples submitted. IMPRESSION: Ultrasound-guided left neck mass aspiration and biopsy. Dictated by Napoleon Vera MD @ 07/08/2024 11:46:05 AM (Electronically Signed)
[2024-07-08 10:27] LABS: INR 1.72 (0.91-1.10); Prothrombin Time 21.4 Seconds
== END 2024-07-08 09:40 | disposition home or self-care (01) ==
LOC: US 09:39
PROVIDERS: PCP Physician Assistant Medical; Visit Provider Otolaryngology
DX: R22.1 Localized swelling, mass and lump, neck (principal)
CPT/HCPCS: 20206; 36415; 76942; 85610; 87070; 87075; 87077; 87186; 87205; 88173; 88304; 88312; A4649